=== PATIENT | male | born 1985 | race Caucasian/White ===

== ENCOUNTER 2017-06-13 06:35 | Outpatient (CLI) | payer OTHER | END 2017-06-13 06:36 | disposition critical access hospital (66) | LOC: EMS 06:35 | PROVIDERS: ATTEND Surgery | DX: R40.20 Unspecified coma (principal) | CPT/HCPCS: A0425; A0427 ==

== ENCOUNTER 2017-06-13 06:53 | Emergency (ER) | payer OTHER ==
[2017-06-13] MEDS ORDERED: SODIUM CHLORIDE 0.9% 1,000 ML IV ONE (07:13)
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
[2017-06-13 07:25] LABS: BASOPHILS # (AUTO) 0.1 10^3/uL (0.0-0.1); BASOPHILS % (AUTO) 0.8 %; EOSINOPHILS # (AUTO) 0.2 10^3/uL (0.0-0.7); EOSINOPHILS % (AUTO) 2.2 %; HCT - HEMATOCRIT 46.6 % (42.0-52.0); HGB - HEMOGLOBIN 15.7 g/dL (14.0-18.0); LYMPHOCYTES # (AUTO) 2.8 10^3/uL (1.5-3.5); LYMPHOCYTES % (AUTO) 32.5 %; MEAN CORPUSCULAR HEMOGLOBIN 32.6 pg (27.0-31.0); MEAN CORPUSCULAR HGB CONC 33.6 g/dL (32.0-36.0); MEAN PLATELET VOLUME 6.1 fL (7.4-11.4); MONOCYTES # (AUTO) 0.7 10^3/uL (0.0-1.0); MONOCYTES % (AUTO) 7.7 %; NEUTROPHILS # (AUTO) 4.9 10^3/uL (1.5-6.6); NEUTROPHILS % (AUTO) 56.8 %; RED CELL DISTRIBUTION WIDTH 14.1 % (12.0-15.0); UNCORRECTED WHITE BLOOD COUNT 8.6 x10^3/uL; WHITE BLOOD COUNT 8.6 x10^3/uL (4.8-10.8)
[2017-06-13 07:43] LABS: ALBUMIN/GLOBULIN RATIO 1.3 (1.0-2.2); BILIRUBIN,TOTAL 0.5 mg/dL (0.2-1.0); POTASSIUM 3.8 mmol/L (3.5-5.0); TOTAL PROTEIN 6.8 g/dL (6.7-8.2)
[2017-06-13 08:05] LABS: BILIRUBIN,URINE NEGATIVE (NEGATIVE)
[2017-06-13 08:09] LABS: UA CHARGE (STRIP ONLY) YES; UR CULTURE IF IND NOT INDICATED
--- NOTE | 2017-06-13 08:12 | CT Preliminary Report ---
Exam: CT Head W/O IMPRESSION: 1. Negative noncontrast head CT. [facility] SITE ID: [id number]
--- NOTE | 2017-06-13 08:14 | CT Report ---
EXAM: CT HEAD EXAM DATE: 06/13/2017 07:50 AM. CLINICAL HISTORY: Found down unresponsive. COMPARISON: None. TECHNIQUE: Multiaxial CT images were obtained from the foramen magnum to the vertex. IV contrast: Non e. Reformats: Coronal. In accordance with CT protocol optimization, one or more of the following dose reduction techniques w ere utilized for this exam: automated exposure control, adjustment of mA and/or KV based on patient s ize, or use of iterative reconstructive technique. FINDINGS: Ventricles appear normal in size and position. No evidence of acute intracranial hemorrhage or mass e ffect. Normal menchaca-white differentiation. No fracture identified. Visualized portions of the mastoid air cells and paranasal sinuses appear normally aerated. IMPRESSION: 1. Negative noncontrast head CT. [facility] Referring Provider Line: [phone] SITE ID: [id number]
--- NOTE | 2017-06-13 08:20 | CT Preliminary Report ---
Exam: CT Cervical Spine W/O IMPRESSION: 1. Mild degenerative disk changes at C6-C7 and C7-T1. 2. No acute fracture. 3. Mildly enlarged anterior cervical lymph nodes. [facility] SITE ID: [id number]
--- NOTE | 2017-06-13 08:21 | XRAY Preliminary Report ---
Exam: XR Chest 1 View IMPRESSION: No acute cardiopulmonary process. [facility] SITE ID: [id number]
--- NOTE | 2017-06-13 08:23 | CT Report ---
EXAM: CT CERVICAL SPINE WITHOUT CONTRAST DATE: 06/13/2017 07:51 AM HISTORY: Found down unresponsive. COMPARISONS: None. TECHNIQUE: Thin-section axial images were acquired of the cervical spine without contrast. Post-proce ssing: Coronal and sagittal reformats. Other: None. In accordance with CT protocol optimization, one or more of the following dose reduction techniques w ere utilized for this exam: automated exposure control, adjustment of mA and/or KV based on patient s ize, or use of iterative reconstructive technique. FINDINGS: Alignment: Mild cervical curvature convex right. Normal vertebral alignment. No spondylolisthesis. Bones: No fracture or bone lesion. Interspace Levels/Facets: C1-C2: Unremarkable. C2-C3: Unremarkable. C3-C4: Unremarkable. C4-C5: Unremarkable. C5-C6: Unremarkable. C6-C7: Mild disk height loss. Anterior osteophyte formation. C7-T1: Mild disk height loss. Musculature: Normal. No fatty atrophy. Other: Prevertebral soft tissues within normal limits. Mildly enlarged bilateral anterior cervical ly mph nodes measure up to 1.2 cm on the left and 1.0 cm on the right. IMPRESSION: 1. Mild degenerative disk changes at C6-C7 and C7-T1. 2. No acute fracture. 3. Mildly enlarged anterior cervical lymph nodes. [facility] Referring Provider Line: [phone] SITE ID: [id number]
--- NOTE | 2017-06-13 08:24 | XRAY Report ---
EXAM: CHEST RADIOGRAPHY EXAM DATE: 06/13/2017 07:53 AM. CLINICAL HISTORY: Unresponsive, vomit in landa ? aspiration. COMPARISON: None. TECHNIQUE: 1 view. FINDINGS: Heart size appears normal. Lung volumes are low. No pulmonary consolidation or edema. IMPRESSION: No acute cardiopulmonary process. [facility] Referring Provider Line: [phone] SITE ID: [id number]
[2017-06-13 14:22] VITALS: BP 108/66
[2017-06-13] MEDS ORDERED: PROPRANOLOL 10 MG TABLET PO ONE (19:15)
[2017-06-13] MEDS ORDERED: PROPRANOLOL 10 MG TABLET ONE (19:15)
== END 2017-06-13 19:26 | disposition home or self-care (01) ==
LOC: ED 06:53
DX: F10.129 Alcohol abuse with intoxication, unspecified (principal); Y90.8 Blood alcohol level of 240 mg/100 ml or more
CPT/HCPCS: 36415; 51701; 70450; 71010; 72125; 80053; 80306; 80320; 81003; 83690; 85025; 93005; 99284; A9270; 81001; 87086

== ENCOUNTER 2017-09-10 | Outpatient (CLI) | payer OTHER | END 2017-09-10 00:01 | disposition critical access hospital (66) | LOC: EMS | PROVIDERS: ATTEND Surgery | DX: R41.82 Altered mental status, unspecified (principal) | CPT/HCPCS: A0425; A0429 ==

== ENCOUNTER 2017-09-10 00:13 | Emergency (ER) | payer OTHER ==
[2017-09-10 07:12] VITALS: BP 128/78
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
== END 2017-09-10 07:21 | disposition home or self-care (01) ==
LOC: EDUNIT# → ED 00:13
DX: F10.920 Alcohol use, unspecified with intoxication, uncomplicated (principal); Y90.8 Blood alcohol level of 240 mg/100 ml or more
CPT/HCPCS: 36415; 80306; 80320; 99283; 99284

== ENCOUNTER 2017-09-16 04:21 | Outpatient (CLI) | payer OTHER | END 2017-09-16 04:22 | disposition EMS.NT | LOC: EMS 04:21 | PROVIDERS: ATTEND Surgery | DX: Z03.89 Encounter for observation for other suspected diseases and conditions ruled out (principal) ==